=== PATIENT | male | born 2000 | race Caucasian/White ===

== ENCOUNTER 2022-09-26 20:38 | Emergency (ER) | payer OTHER ==
[~2022-09-26] VITALS: Ht 188 cm; Wt 110.0 kg
[2022-09-26 21:12] VITALS: BP 147/75
[2022-09-26] MEDS ORDERED: CLIN300C8 PO (21:31)
== END 2022-09-26 21:46 | disposition home or self-care (01) ==
LOC: ER 20:38
DX: S81.852A Open bite, left lower leg, initial encounter (principal); W54.0XXA Bitten by dog, initial encounter; Y93.89 Activity, other specified; Y92.89 Other specified places as the place of occurrence of the external cause; Y99.8 Other external cause status